=== PATIENT | female | born 1970 | race Caucasian/White ===

== ENCOUNTER → 2019-10-13 17:55 | Outpatient (CLI) | payer BC, SELFPAY ==
--- NOTE | ~2019-10-13 | XR_ITS ---
EXAMINATION: XR chest 2V DATE: 10/13/2019 18:38 INDICATION: Allergic rhinitis. Cough. TECHNIQUE: frontal and lateral views of the chest were obtained. COMPARISON: Chest radiograph dated 09/29/2013 FINDINGS: The lungs remain clear with no focal airspace opacities, pulmonary edema, pleural effusion or pneumot horax. The cardiomediastinal silhouette is normal. Mild thoracic spondylosis. IMPRESSION: 1. No acute cardiopulmonary disease. Reviewed, dictated and finalized at location A. TENANCE DEPARTMENT MANAGER
== END ==
PROVIDERS: PCP Family Medicine; Visit Provider Family Medicine
DX: J30.9 Allergic rhinitis, unspecified (principal)
CPT/HCPCS: 71046

== ENCOUNTER 2020-02-18 09:40 | Outpatient (CLI) | payer BC, SELFPAY ==
--- NOTE | ~2020-02-18 | CT_ITS ---
EXAMINATION: CT sinus wo con DATE: 02/18/2020 10:14 INDICATION: Chronic sinusitis TECHNIQUE: Computed tomography (CT) of the paranasal sinuses was performed without intravenous contra st. The dose-length product was 312.93 mGy-cm. Automated exposure control and iterative reconstructio n technique were employed. COMPARISON: None FINDINGS: Minimal mucosal thickening in the sphenoid sinus. No air-fluid levels. Ostiomeatal units ar e patent. No significant nasal septal deviation. Mastoids are pneumatized. IMPRESSION: 1. Minimal sphenoid sinus disease. Reviewed, dictated and finalized at location A.
== END 2020-02-18 09:41 | disposition home or self-care (01) ==
LOC: ANHIMG 09:51
PROVIDERS: PCP Family Medicine; Visit Provider Allergy & Immunology
DX: J32.9 Chronic sinusitis, unspecified (principal)
CPT/HCPCS: 70486

== ENCOUNTER 2020-07-24 00:21 | Outpatient (CLI) | payer BC, SELFPAY ==
[2020-07-24 21:19] LABS: SARS-CoV-2 RNA PCR Negative
== END 2020-07-24 00:22 | disposition home or self-care (01) ==
LOC: ANHCOVIDDT 00:22
PROVIDERS: PCP Family Medicine; Visit Provider Internal Medicine Gastroenterology
DX: Z01.812 Encounter for preprocedural laboratory examination (principal); Z20.828 Contact with and (suspected) exposure to other viral communicable diseases
CPT/HCPCS: 87635; C9803; U0003

== ENCOUNTER 2020-07-27 05:17 | Day surgery (SDC) | payer BC, SELFPAY ==
--- NOTE | 2020-07-26 11:58 | WPDANESEPPF ---
Anes - Initial Pre Proc Eval Procedure: Operation Date: 07/27/20 08:00 Proposed Procedures p Screening Colonoscopy - Abdi Haley MD Date/Time: 07/26/20 11:58 Surgeon: Abdi Haley MD Pre Op Diagnosis: Neoplasm Screening Patient Data Age: 50 Gender: F Height: 1.7 m Weight: 87 kg Allergies Allergy/AdvReac Type Severity Reaction Status Date / Time No Known Allergies Allergy Verified 07/27/20 06:45 Home Medications Medication Instructions Recorded Confirmed Type levonorgestrel 0.15 mg-ethinyl 1 tablet PO DAILY #84 tablet 09/12/19 07/20/20 Rx estradiol 0.03 mg tablet calcium carbonate 600 mg (1,500 1 cap PO DAILY cap 10/07/19 07/20/20 History mg)-vitamin D3 500 unit capsule levocetirizine 5 mg tablet 5 mg PO DAILY 10/07/19 07/20/20 History mometasone 50 mcg/actuation nasal 2 spray NASAL DAILY 10/07/19 07/20/20 History spray peg 3350-electrolytes 236 240 ml PO Q10M #4000 ml 06/08/20 07/20/20 Rx gram-22.74 gram-6.74 gram-5.86 gram solution omeprazole 40 mg PO BID 07/20/20 07/20/20 History Patient hx anesthesia problems: none Family hx anesthesia problems: none PMFSH Past Medical History Medical History (Updated 04/28/20 @ 08:52 by Viry Lauren) History of chicken pox Normal Pap smear (~07/04/19) HPV neg, CT/NG neg Wears contact lenses Surgical History Surgical History History of appendectomy (~12/19/17) Hx of cholecystectomy (~11/24/13) Family History Family History Father Hypertension Hyperlipidemia Pulmonary embolism DVT (deep venous thrombosis) Mother Hypertension Grandparent Breast cancer Hypertension Macular degeneration Sibling No problems noted. Sibling No problems noted. Social History Social History Smoking status: Never smoker Alcohol intake: current Drinks per week: 1 Substance use: never Substance use type: does not use Living arrangements: with family Spiritual care concerns: No Anes - Eval Final PreProcedure Day of Procedure 07/26/20 11:58 Patient weight: obese Heart: regular rate and rhythm Lungs: clear to auscultation and normal air movement Airway: Mallampati scale class II Neurological: alert and oriented Last oral intake: >/= 8 hours ASA classification: II Emergent: no Anesthetic plan: proceed Anesthesia type and monitoring: general GIVS and standard monitoring Informed Consent: The patient's anesthetic plan and its attendant risks and benefits were discussed with the patient/family/POA. Questions were solicited and answers provided to the satisfaction of the patient/family/POA.
[2020-07-27 06:47] VITALS: BP 146/84; PULSE 93; RESP 16; TEMP 36.8; O2SAT 99; BMI 30.1
[2020-07-27] MEDS: LACTATED RINGERS 1,000 ML 150 ML IV CONT (07:03)
--- NOTE | 2020-07-27 08:31 | PM.HPGS ---
History of Present Illness History of Present Illness Consent: Risks, benefits, and alternatives have been discussed and questions answered. Patient agrees to proceed with procedure. Chief complaint: Neoplasm Screening Narrative: Ivette Muñoz is a 50 year old female here for first screening colonoscopy Review of Systems Constitutional: Constitutional: Denies headache(s) and Denies weakness Eyes: Eyes: Denies blurry vision ENT: Reports Normal hearing present, Denies headache(s) and Denies neck pain Cardiovascular: Cardiovascular: Denies chest pain and Denies dyspnea Respiratory: Respiratory: Denies dyspnea Gastrointestinal: Gastrointestinal: Reports no additional gastrointestinal complaints Genitourinary: Genitourinary: Denies dysuria Musculoskeletal: Musculoskeletal: Denies neck pain Integumentary/Breasts: Skin/Breast: Denies dry skin Neurologic: Reports Normal hearing present, Denies headache(s) and Denies weakness Psychiatric: Psychiatric: Denies anxiety Endocrine: Endocrine: Denies change in body appearance Hematologic/Lymphatic: Hematologic/Lymphatic: Denies easy bleeding Allergic/Immunologic: Allergic/Immunologic: Denies urticaria PMF Past Medical History Medical History (Updated 07/27/20 @ 08:32 by Abdi Haley MD) Colon cancer screening History of chicken pox Normal Pap smear (~07/04/19) HPV neg, CT/NG neg Wears contact lenses Surgical History Surgical History History of appendectomy (~12/19/17) Hx of cholecystectomy (~11/24/13) Family History Family History Father Hypertension Hyperlipidemia Pulmonary embolism DVT (deep venous thrombosis) Mother Hypertension Grandparent Breast cancer Hypertension Macular degeneration Sibling No problems noted. Sibling No problems noted. Social History Social History Smoking status: Never smoker Alcohol intake: current Drinks per week: 1 Substance use: never Substance use type: does not use Living arrangements: with family Spiritual care concerns: No Meds Home Medications and Allergies Home Medications Medication Instructions Recorded Confirmed Type levonorgestrel 0.15 mg-ethinyl 1 tablet PO DAILY #84 tablet 09/12/19 07/20/20 Rx estradiol 0.03 mg tablet calcium carbonate 600 mg (1,500 1 cap PO DAILY cap 10/07/19 07/20/20 History mg)-vitamin D3 500 unit capsule levocetirizine 5 mg tablet 5 mg PO DAILY 10/07/19 07/20/20 History mometasone 50 mcg/actuation nasal 2 spray NASAL DAILY 10/07/19 07/20/20 History spray peg 3350-electrolytes 236 240 ml PO Q10M #4000 ml 06/08/20 07/20/20 Rx gram-22.74 gram-6.74 gram-5.86 gram solution omeprazole 40 mg PO BID 07/20/20 07/20/20 History Allergies Allergy/AdvReac Type Severity Reaction Status Date / Time No Known Allergies Allergy Verified 07/27/20 06:45 Vital Signs Vital Signs - 24 hr 07/27/20 06:47 Temperature 98.3 F Pulse Rate 93 Respiratory Rate 16 Blood Pressure 146/84 H Pulse Oximetry 99 Exam Const: General: comfortable and no acute distress HENMT: General nose exam: Normal nares present Eyes: General: appearance normal, both eyes and all related structures Neck: Neck: no JVD Resp: Auscultation: clear to auscultation bilaterally Cardio: Rate: regular rate Rhythm: regular rhythm GI: Inspection: non-distended GI Palp: Yes Soft to palpation Skin: General skin exam: normal color Neuro: General: gait normal Speech: normal speech Extrem: General: normal to inspection Psych: Mental Status: mental status grossly normal Assessment and Plan Assessment and plan (1) Colon cancer screening: Code(s): Z12.11 - Encounter for screening for malignant neoplasm of colon Status: Acute
[2020-07-27 08:34] VITALS: BP 113/79; PULSE 86; RESP 22; O2SAT 99
[2020-07-27 08:44] VITALS: BP 128/88; PULSE 74; RESP 18; O2SAT 100
[2020-07-27 08:54] VITALS: BP 144/92; PULSE 70; RESP 20; O2SAT 98
== END 2020-07-27 09:04 | disposition home or self-care (01) ==
PROVIDERS: PCP Family Medicine; Visit Provider Internal Medicine Gastroenterology
PROC: 0DJD8ZZ Inspection of Lower Intestinal Tract, Via Natural or Artificial Opening Endoscopic (ICD-10-PCS; CPT 45378; principal; 2020-07-27 08:00)
DX: Z12.11 Encounter for screening for malignant neoplasm of colon (principal); K57.30 Diverticulosis of large intestine without perforation or abscess without bleeding; K63.5 Polyp of colon; E66.9 Obesity, unspecified; Z68.30 Body mass index [BMI] 30.0-30.9, adult
CPT/HCPCS: 45380; 88305; J2704; J7120

== ENCOUNTER 2024-05-05 17:21 | Emergency (ER) | payer OTHER, SELFPAY ==
--- NOTE | ~2024-05-05 | XR_ITS ---
EXAMINATION: XR chest 2V DATE: 05/05/2024 18:53 INDICATION: Cough. COVID-19. TECHNIQUE: Frontal and lateral views of the chest were obtained. COMPARISON: Chest 2 views 10/13/19 FINDINGS: There is mild atelectasis in left lower lung zone. No pleural effusion or pneumothorax. The heart size is normal. IMPRESSION: 1. Mild atelectasis in left lower lung zone. Reviewed, dictated and finalized at location A.
[2024-05-05 17:28] VITALS: BP 149/85; PULSE 108; RESP 15; TEMP 36.8; O2SAT 98
--- NOTE | 2024-05-05 17:30 | ED.URI ---
HPI - URI/Sore Throat General Chief Complaint: Upper Respiratory Infection <Josephine Hodge PA-C - Last Filed: 05/06/24 09:25> Stated Complaint: COVID + RECENT TRIP TO [facility] <Josephine Hodge PA-C - Last Filed: 05/06/24 09:25> Time Seen by Provider: 05/05/24 17:30 <Josepihne Hodge PA-C - Last Filed: 05/06/24 09:25> Focused HPI: This is a 54 year old female that presents to the ER for cold symptoms since yesterday. Reports cough, congestion, sore throat, vomiting and diarrhea. She tested positive on a home COVID test which prompted her to be seen in the ER. GENERAL: Well-appearing, well-nourished, and in no acute distress. HEAD: Normocephalic, atraumatic. CHEST: Clear to auscultation. ?No respiratory distress. HEART: Regular rate and rhythm.? NEURO: ?Alert and oriented x3. Patient screened in triage and initial orders placed.? ?Additional care and disposition to be based upon?diagnostic testing and treatment. <Josephine Hodge PA-C - Last Filed: 05/06/24 09:25> Focused HPI: This is a 54 year old female that presents to the ER for cold symptoms since yesterday. Reports cough, congestion, sore throat, vomiting and diarrhea. She tested positive on a home COVID test which prompted her to be seen in the ER. Patient admits that she has been recently traveling internationally. GENERAL: Well-appearing, well-nourished, and in no acute distress. HEAD: Normocephalic, atraumatic. CHEST: Clear to auscultation. ?No respiratory distress. HEART: Regular rate and rhythm.? NEURO: ?Alert and oriented x3. Patient screened in triage and initial orders placed.? ?Additional care and disposition to be based upon?diagnostic testing and treatment. Agree with triage assessment. <Edson Granda MD - Last Filed: 05/06/24 01:52> Related Data Home Medications: Home Medications Medication Instructions Recorded Confirmed calcium carbonate 600 mg-vitamin 1 cap PO DAILY 10/07/19 01/03/24 D3 12.5 mcg (500 unit) capsule (Calcium 600 with Vitamin D3) levocetirizine 5 mg tablet (Xyzal) 5 mg PO DAILY 10/07/19 01/03/24 epinephrine 0.3 mg/0.3 mL 0.3 ml IM 05/15/23 01/03/24 injection, auto-injector metformin 1,000 mg tablet mg PO 01/03/24 01/03/24 progesterone micronized 100 mg mg PO 01/03/24 01/03/24 capsule <Josephine Hodge PA-C - Last Filed: 05/06/24 09:25> Allergies/Adverse Reactions: Allergies Allergy/AdvReac Type Severity Reaction Status Date / Time No Known Allergies Allergy Verified 05/05/24 23:33 <ANUM Miguel Last Filed: 05/06/24 09:25> Review of Systems Review of Systems: All systems reviewed & are unremarkable except as noted in HPI and below <ANUM Miguel Last Filed: 05/06/24 09:25> PMFSH Past Medical History Medical History: Medical History Abnormal mammogram 8.19.21 successful core biopsy left breast/ path pending Colon cancer screening History of chicken pox Normal Pap smear (~07/04/19) HPV neg, CT/NG neg Wears contact lenses <ANUM Miguel Last Filed: 05/06/24 09:25> Surgical History Surgical History: Surgical History History of appendectomy (~12/19/17) History of colonoscopy with polypectomy 11.17.20 Hx of cholecystectomy (~11/24/13) <ANUM Miguel Last Filed: 05/06/24 09:25> Family History Family History: Family History Father Hypertension Hyperlipidemia Pulmonary embolism DVT (deep venous thrombosis) Mother Hypertension Grandparent Breast cancer Hypertension Macular degeneration Sibling No problems noted. Sibling No problems noted. <Josephine Hodge PA-C - Last Filed: 05/06/24 09:25> Social History Social History: Social History Smoking stat
[2024-05-05 18:06] LABS: Basophils Percent Auto 0.2 % (0.2-1.2); Eosinophils Absolute Auto 0.1 K/mm3 (0-0.3); Eosinophils Percent Auto 0.5 % (0-4.4); Hematocrit 46.4 % (37.0-47.0); Hemoglobin 15.8 g/dL (12.0-15.0); Immature Granulocyte Absolute 0.03 K/mm3 (0.00-0.031); Immature Granulocyte Percent A 0.3 % (0-0.5); Lymphocytes Absolute Auto 0.46 K/mm3 (0.9-3.2); Lymphocytes Percent Auto 4.9 % (18.3-44.2); Mean Corpuscular HGB Conc 34.1 g/dl (32-36); Mean Corpuscular Hemoglobin 30.5 pg (26-34); Mean Corpuscular Volume 89.6 fl (80-100); Mean Platelet Volume 9.3 fl (7.4-10.4); Monocytes Absolute Auto 0.6 K/mm3 (0.1-0.6); Monocytes Percent Auto 5.9 % (2.6-8.5); Neutrophils Absolute Auto 8.3 K/mm3 (1.3-6.7); Neutrophils Percent Auto 88.2 % (45.5-73.1); Platelet Count Result 360 k/mm3 (150-375); Red Blood Count 5.18 M/mm3 (4.2-5.4); Red Cell Distribution Width 13.1 % (11.5-14.5); White Blood Count 9.4 K/mm3 (4.5-10.0)
[2024-05-05 18:18] LABS: Alanine Aminotransferase 28 U/L (6-35); Albumin Level 4.7 g/dL (3.5-5.1); Alkaline Phosphatase 82 U/L (38-126); Anion Gap 14 mmol/L (4-12); Aspartate Amino Transferase 32 U/L (14-36); Bilirubin,Total 0.5 mg/dL (0.2-1.3); Blood Urea Nitrogen 15 mg/dL (7-17); Calcium 8.8 mg/dL (8.4-10.2); Carbon Dioxide 21 mmol/L (22-30); Chloride 100 mmol/L (98-107); Estimated CRCL calculation 85 ml/min; Estimated Glomerular Filt Rate > 60; Glucose 120 mg/dL (65-110); Sodium 135 mmol/L (137-145)
[2024-05-05 19:35] LABS: Influenza A QL RT-PCR Negative (Negative); Influenza B QL RT-PCR Negative (Negative); RSV RNA, RT-PCR Negative (Negative); SARS-CoV-2 RNA PCR Positive (Negative)
[2024-05-05 23:31] VITALS: BP 134/86; PULSE 98; RESP 15; O2SAT 98
[2024-05-05] MEDS: ONDANSETRON INJ 4 MG/2 ML VIAL IV PUSH (23:45)
[2024-05-05] MEDS: SODIUM CHLORIDE 0.9% IV 1,000 ML 999 ML IV CONT (23:45)
[2024-05-06 01:30] VITALS: BP 137/80; PULSE 93; RESP 16; O2SAT 94
== END 2024-05-06 02:15 | disposition home or self-care (01) ==
PROVIDERS: Physician Assistant; Emergency Provider Emergency Medicine; PCP Family Medicine
DX: U07.1 COVID-19 (principal); R11.2 Nausea with vomiting, unspecified; R19.7 Diarrhea, unspecified
CPT/HCPCS: 36415; 71046; 80053; 85025; 87637; 96361; 96374; 99284; J2405; J7030

== ENCOUNTER 2024-07-28 09:09 | Outpatient (CLI) | payer OTHER, SELFPAY ==
--- NOTE | ~2024-07-28 | XR_ITS ---
XR ankle LT min 3V Ordering provider: Imer Blandon APRN History: . M25.562 - Pain in left knee . Comparison: None. FINDINGS: BONES: No acute fracture or dislocation. Calcaneal spur. Longitudinal lucency seen in the AP view in the distal tibia is most likely summation shadow. JOINT SPACES: The ankle mortise is normal. SOFT TISSUES: Soft tissue swelling over the medial malleolus. IMPRESSION: No definite acute osseous abnormality left ankle. Longitudinal Lucency seen in the AP view is most l ikely summation shadow. Reviewed, dictated and finalized at location A. INVESTMENT/PORTFOLIO MANAGER IMPRESSION: No definite acute osseous abnormality left ankle. Longitudinal Lucency seen in the AP view is most likely summation shadow.
--- NOTE | ~2024-07-28 | XR_ITS ---
XR knee LT 3V Ordering provider: Imer Blandon APRN History: . M25.562 - Pain in left knee . Comparison: None. FINDINGS: BONES: No acute fracture or dislocation. JOINT SPACES: Normal. SOFT TISSUES: Normal. IMPRESSION: No acute osseous abnormality left knee. Reviewed, dictated and finalized at location A. NT TESTER ASSISTANT
--- NOTE | ~2024-07-28 | XR_ITS ---
XR shoulder RT min 2V Ordering provider: Imer Blandon APRN History: . M25.511 - Pain in right shoulder . Comparison: None. FINDINGS: BONES: No acute fracture or dislocation. JOINT SPACES: The acromioclavicular joint is normal. The glenohumeral joint is normal. SOFT TISSUES: Normal. IMPRESSION: No acute osseous abnormality right shoulder. Reviewed, dictated and finalized at location A. AL RESEARCHER
== END 2024-07-28 09:10 | disposition home or self-care (01) ==
PROVIDERS: PCP Family Medicine; Visit Provider Student in an Organized Health Care Education/Training Program
DX: M25.562 Pain in left knee (principal); M25.511 Pain in right shoulder
CPT/HCPCS: 73030; 73562; 73610

== ENCOUNTER 2024-10-30 08:00 | Outpatient (RCR) | payer OTHER, SELFPAY ==
--- NOTE | 2024-08-05 16:45 | OPREHPOC ---
Outpatient Therapy Plan of Care This is a Multidisciplinary Plan of Care that may contain components documented by all disciplines (PT, OT, and ST.) PT Problem 1 PT Problem #1 Knowledge Deficit PT Goal 1 Goal / Goal Update [place] with HEP Target Visit 4 PT Goal 2 Goal / Goal Update Report no pain greater than 2/10 consistently for 2 weeks Target Visit 8 PT Problem 2 PT Problem #2 Impaired Range of Motion PT Goal 1 Goal / Goal Update 1. Demonstrate 70 degrees coby cervical rotation motion to improve facet glide and indicate reduced cervical strain 2. Improve coby cervical side bending to 40 degrees to reduce upper trapezius restriction Target Visit 8 PT Goal 2 Goal / Goal Update 1. Improve R shoulder flexion ROM to 170 degrees to improve active reach Target Visit 8 PT Problem 3 PT Problem #3 Impaired Strength PT Goal 1 Goal / Goal Update 1. Improve right shoulder external rotation strength to 4+/5 to improve stability of joint capsule 2. Improve right shoulder flexion strength to 4+/5 to improve object lifting Target Visit 8
--- NOTE | 2024-08-05 16:45 | PTOPEVAL1 ---
Assessment and note entered by Walker Rodriguez, PT Evaluation Information Assessment Status Evaluation ICD-10 Condition Codes (PT) M25.511 Onset 07/24/24 Subjective Information Reports that she had a fall 2 weeks ago and hit her shoulder against the wall. She is having pain all the time and fluctuates. Not sleeping well at night as she cannot sleep on her side. Her left knee was injured and is giving her a lot of trouble as well. Gets pain with reaching behind head and behind back. Occasionally get pain radiating down to her wrist on the right side. Reported Pain Level Pain Score 5: Self Report Assessment PT Clinical Summary Patient presents with signs and symptoms consistent with shoulder tendonitis and Right upper trapezius compensation. Over shoulder activity limited in strength and ROM, but below shoulder activity is maintained. Patient will benefit form skilled therapy to address cervical mobility deficits, shoulder capsule limitation and shoulder girdle weakness. Plan of Care Interventions Electrical Stimulation,Hot Pack/Cold Pack,Manual Therapy,Neuro Re-education,Therapeutic Activities, Therapeutic Exercise PT Services Indicated Yes Treatment Frequency and 2x/week for 8 visits Duration These treatments will address the objective and functional deficits as defined above. The patient will be advanced safely and appropriately in order for the patient to progress towards his/her prior level of function. Additional exercises will be introduced and as well as a comprehensive home exercise program upon discharge, if needed, ?to ensure carryover of functional gains achieved in the clinic. This treatment plan has been reviewed and agreement upon by the patient.
--- NOTE | 2024-08-28 16:44 | OPREHPOC ---
Outpatient Therapy Plan of Care This is a Multidisciplinary Plan of Care that may contain components documented by all disciplines (PT, OT, and ST.) PT Problem 1 PT Problem #1 Knowledge Deficit PT Goal 1 Goal / Goal Update [place] with HEP Target Visit 4 Progress Met PT Goal 2 Goal / Goal Update Report no pain greater than 2/10 consistently for 2 weeks 08/28/24: progressing Target Visit 8 PT Problem 2 PT Problem #2 Impaired Range of Motion PT Goal 1 Goal / Goal Update 1. Demonstrate 70 degrees coby cervical rotation motion to improve facet glide and indicate reduced cervical strain 2. Improve coby cervical side bending to 40 degrees to reduce upper trapezius restriction Target Visit 8 PT Goal 2 Goal / Goal Update 1. Improve R shoulder flexion ROM to 170 degrees to improve active reach 08/28/24: progressing Target Visit 8 PT Problem 3 PT Problem #3 Impaired Strength PT Goal 1 Goal / Goal Update 1. Improve right shoulder external rotation strength to 4+/5 to improve stability of joint capsule 2. Improve right shoulder flexion strength to 4+/5 to improve object lifting 08/28/24: progressing Target Visit 8
--- NOTE | 2024-08-28 16:44 | PTOPPROG ---
Assessment and note entered by Bennett Ho, PT, DPT Evaluation Information Assessment Status Progress Diagnosis R shoulder, L knee pain ICD-10 Condition Codes (PT) Pain in right shoulder M25.511 Onset 07/24/24 Subjective Information Pt states her shoulder feels a little bit better, but not a lot better. She states she uses her R arm a lot for work and its hard to not use it to let it heel. States she has shoulder pain throughout the day and is still waking up d/t pain , is unable to sleep on her R side. Reaching behind her is still limited and painful. Reports hurting her L knee as well in the same fall. Has been wearing a brace since her fall. Reports minimal pain at rest, with a certain movement will get a sharp pain that dissipates after she triggers it. Has been working in a recliner to avoid bending her knee. If she sits too long will have lots of pain when trying to straightening it. Assessment PT Clinical Summary Patient has completed 7 visits of therapy to treat her R shoulder pain with decreased ROM and strength. She is making slow progress towards her goals, progress is limited by persistent pain. Her knee was evaluated this date, she demonstrates lots of guarding with fear avoidance behaviors. There is medial joint line tenderness. Skilled therapy services are indicated to address the deficits noted above, to manage pain, and to return to prior level of function. Plan of Care Interventions Electrical Stimulation,Hot Pack/Cold Pack,Manual Therapy,Neuro Re-education,Therapeutic Activities, Therapeutic Exercise PT Services Indicated Yes Treatment Frequency and 2x/week for 8 visits Duration These treatments will address the objective and functional deficits as defined above. The patient will be advanced safely and appropriately in order for the patient to progress towards his/her prior level of function. Additional exercises will be introduced and as well as a comprehensive home exercise program upon discharge, if needed, ?to ensure carryover of functional gains achieved in the clinic. This treatment plan has been reviewed and agreement upon by the patient.
--- NOTE | 2024-09-30 16:26 | PTOPPROG ---
Assessment and note entered by Bennett Ho, PT, DPT Evaluation Information Assessment Status Progress Diagnosis R shoulder, L knee pain ICD-10 Condition Codes (PT) Pain in right shoulder M25.511 Onset 07/24/24 Subjective Information Pt states her ankle is fine. States she gets periodic pains in her knees, that she can life with, states she feels more stable on her feet. Her shoulder still bothers her everyday, almost all day long. Has troubles getting dressed. States she has pain with daily chores, it does not limit her function, just causes pain. Assessment PT Clinical Summary Patient has completed 14 visits of therapy to treat her R shoulder pain. Today she continues to demonstrate decreased ROM and strength, limited by pain. She is making slow progress towards her goals, progress is limited by persistent pain. Continuation of skilled therapy services are indicated to improve shoulder pain reports, address the deficits noted above, to manage pain, and to return to prior level of function. Plan of Care Interventions Electrical Stimulation,Hot Pack/Cold Pack,Manual Therapy,Neuro Re-education,Therapeutic Activities, Therapeutic Exercise PT Services Indicated Yes Treatment Frequency and 2x/week for 8 visits Duration These treatments will address the objective and functional deficits as defined above. The patient will be advanced safely and appropriately in order for the patient to progress towards his/her prior level of function. Additional exercises will be introduced and as well as a comprehensive home exercise program upon discharge, if needed, ?to ensure carryover of functional gains achieved in the clinic. This treatment plan has been reviewed and agreement upon by the patient.
--- NOTE | 2024-10-30 08:56 | OPREHPOC ---
Outpatient Therapy Plan of Care This is a Multidisciplinary Plan of Care that may contain components documented by all disciplines (PT, OT, and ST.) PT Problem 1 PT Problem #1 Knowledge Deficit PT Goal 1 Goal / Goal Update [place] with HEP Target Visit 4 Progress Met PT Goal 2 Goal / Goal Update Report no pain greater than 2/10 consistently for 2 weeks 08/28/24: progressing 09/30/24: not met 10/30/24: met Target Visit 8 PT Problem 2 PT Problem #2 Impaired Range of Motion PT Goal 1 Goal / Goal Update 1. Demonstrate 70 degrees coby cervical rotation motion to improve facet glide and indicate reduced cervical strain 2. Improve coby cervical side bending to 40 degrees to reduce upper trapezius restriction Target Visit 8 PT Goal 2 Goal / Goal Update 1. Improve R shoulder flexion ROM to 170 degrees to improve active reach 08/28/24: progressing 09/30/24: slight regression 10/30/24: 1. progressing to 150 Target Visit 8 PT Problem 3 PT Problem #3 Impaired Strength PT Goal 1 Goal / Goal Update 1. Improve right shoulder external rotation strength to 4+/5 to improve stability of joint capsule 2. Improve right shoulder flexion strength to 4+/5 to improve object lifting 08/28/24: progressing 09/30/24: 1-2. progressing with pain 10/30/24: 1-2. met Target Visit 8
--- NOTE | 2024-10-30 08:57 | PTOPPROG ---
Assessment and note entered by Bennett Ho, PT, DPT Evaluation Information Assessment Status progress Diagnosis R shoulder, L knee pain ICD-10 Condition Codes (PT) Pain in right shoulder M25.511 Onset 07/24/24 Subjective Information Pt states her shoulder has made a significant improvement in the last month. She states her ROM and strength has improved significantly, she still has pain but is it limited. Can also sleep on her shoulder now. Assessment PT Clinical Summary Patient has completed 23 visits of therapy to treat her R shoulder pain. Today she demonstrates improved shoulder ROM, strength, and pain reports. She has met or progressed well towards all her therapy goals. Pt plans to continue her HEP IND and will follow up in a month if she has additional questions or needs progressed exercises . Plan of Care Interventions Electrical Stimulation,Hot Pack/Cold Pack,Manual Therapy,Neuro Re-education,Therapeutic Activities, Therapeutic Exercise PT Services Indicated Yes Treatment Frequency and follow up in a month if needed Duration These treatments will address the objective and functional deficits as defined above. The patient will be advanced safely and appropriately in order for the patient to progress towards his/her prior level of function. Additional exercises will be introduced and as well as a comprehensive home exercise program upon discharge, if needed, ?to ensure carryover of functional gains achieved in the clinic. This treatment plan has been reviewed and agreement upon by the patient.
--- NOTE | 2024-11-04 10:20 | PCPTNOTE ---
This treatment is being continued on visit number [id number]. Please see documentation on both accounts to view progress. Completed interventions, outcomes, and problems have been marked as Inactive to facilitate the copying of the Care plan routine for recurring accounts.
== END 2024-11-03 23:59 | disposition home or self-care (01) ==
LOC: ANHGOSHPT 08:00
PROVIDERS: PCP Family Medicine; Visit Provider Student in an Organized Health Care Education/Training Program
DX: M25.511 Pain in right shoulder (principal)
CPT/HCPCS: 97014; 97110; 97140; 97161; 97164; 97530; G0283

== ENCOUNTER 2025-06-13 10:46 | Outpatient (CLI) | payer OTHER, SELFPAY ==
--- NOTE | ~2025-06-13 | MR_ITS ---
EXAMINATION: MR shoulder RT wo con DATE: 06/13/2025 12:05 INDICATION: Right shoulder pain post fall TECHNIQUE: Magnetic resonance imaging (MRI) of the affected shoulder was performed without intravenous contrast. Sequences included axial PD-weighted FS FSE, coronal oblique PD-weighted FS FSE, coronal oblique T2-weighted FS FSE, sagittal PD-weighted FS FSE, and sagittal T1-weighted SE. COMPARISON: None. FINDINGS: Coracoacromial arch: The acromion undersurface is curved in morphology (type II). The coracoacromial ligament is normal. Mild acromioclavicular osteoarthritis. Rotator cuff: Moderate supraspinatus and mild infraspinatus tendinopathy. There is a small full-thickness versus severe bursal sided tear along the superior facet footplate of the supraspinatus tendon extending 4 mm AP and 6 mm medial to lateral. The subscapularis and teres minor tendons are normal. Normal rotator c uff muscle bulk and signal. Biceps tendon, glenoid labrum and glenohumeral cartilage: Long head of the biceps tendon is normal. Glenoid labrum is normal. Glenohumeral cartilage is normal. Fluid: Small glenohumeral joint effusion with proportional extension of a small amount fluid along the long head biceps tendon sheath. No loose osteochondral bodies. Small amount of fluid in the subacromial/subdeltoid bursa which could be due to either mild bursitis or decompression of fluid from the glenohumeral joint space through the possible small full-thickness supraspinatus tendon tear. Bones: Normal marrow signal with no edema, fracture or abnormal marrow replacing process. IMPRESSION: 1. Moderate supraspinatus and mild infraspinatus tendinopathy with very small full-thickness versus deep bursal sided tear along the superior facet footplate of the supraspinatus tendon. 2. Small amount of fluid in the subacromial/subdeltoid bursa which could be due to bursitis or decompression of glenohumeral joint fluid through the possible full-thickness supraspinatus tendon tear. Reviewed, dictated and finalized at location A. IMPRESSION: 1. Moderate supraspinatus and mild infraspinatus tendinopathy with very small f ull-thickness versus deep bursal sided tear along the superior facet footplate of the supraspinatus tendon. 2. Small amount of fluid in the subacromial/subdeltoid bursa which could be due to bursitis or decompression of glenohumeral joint fluid through the possible full-thickness supraspinatus tendon tear.
--- OUTSIDE RECORDS SUMMARY | 2025-06-13 10:50 | XMS_ITS | Clinical Summary ---
Author Organization [facility] Address [address] [place] [address] Care Team Providers Care Family Educator Name Role Phone Janet Sapp MD Primary Care Provider [phone] Source Comments [facility],non-owned Affiliates and Associated Physician Practices is amultiple site organization consisting of ambulatory clinics and hospital sitesin [place], [place], [place] and [place]. This disclosure is being madepursuant to the Care Everywhere program and may not contain all information available regarding this patient. Last updated 18.[facility] Allergies No known active allergies Medications * Be aware that medications may not be up to date on this document. Alwaysverify current medications with the patient. levocetirizine (XYZAL) 5 MG tablet Take 1 (one) tablet by mouth once daily Active triamcinolone (NASACORT AQ) 55 MCG/ACT nasal inhaler Welch 1 (one) spray into each nostril once daily Active ketotifen (Zaditor) 0.025 % ophthalmic solution Instill 1 (one) drop into both eyes every 12 hours Active Syringe/Needle, Disp, (SYRINGE 3CC/25GX5/8) 25G X 5/8 3 ML MISC For use with allergy serum as directed. Dispense 30 for a 1 month supply 30 Each 3 3 Active EPINEPHrine (Epipen) 0.3 MG/0.3ML auto-injector pen Inject 0.3 mL into muscle once as needed for Anaphylaxis 0.3 mL 3 Active Immunizations Immunization Administration Dates Next Due Cristo Moreno primary monoval ent 12+ yr 0.3mL Purple cap 08/25/2021,12/24/2020,12/03/2020 iNFLUENZA VACCINE, RECOM-CARSON, QUADR. (FLUBLOCK QUADRIVALENT; 18Y+) (RIV4) 07/06/2020 Family History Medical History Relation Name Comments Asthma Brother Hypertension Father Relation Name Status Comments Brother Father Social History Tobacco Use Types Packs/Day Years Used Date Smoking Tobacco: Never Smokeless Tobacco: Never Tobacco Cessation:Counseling Given: Not Answered Alcohol Use Standard Drinks/Week Comments Yes 0 (1 standard drink = 0.6 oz pur e alcohol) AUDIT-C Answer Date Recorded Q1: How often do you have a drink containing alc ohol? Monthly or less 06/07/2020 Q2: How many drinks containi ng alcohol do you have on a typical day when you are drinking? 1 or 2 06/07/2020 Q3: How often do you have si x or more drinks on one occasion? 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 Height 170.2 cm (5' 7) 07/19/2023 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 Body Mass Index 35.08 07/19/2023 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 Plan of Treatment Health Maintenance Due Date Last Done Comments COLOGUARD (AGES 45-75) - COLON CA SCREENING 1970 COLON MONITORING 1970 COLONOSCOPY - COLON CA SCREENING 1970 CT COLONOGRAPHY - COLON CA SCREENING 1970 Colorectal Cancer Screening 1970 FIT - COLON CA SCREENING 1970 FLEX SIG - COLON CA SCREENING 1970 LIPID TESTING 1970 HIV SCREENING 1985 HEPATITIS C SCREENING 01/03/1988 DTAP/TDAP/TD VACCINES (1 - Tdap) 1989 HEPATITIS B VACCINE (1 of 3 - 19+ 3-dose series) 1989 PAP SMEAR 1991 PNEUMOCOCCAL VACCINE 50+ (1 of 1 - PCV) 01/08/2020 ZOSTER VACCINE (1 of 2) 01/08/2020 SCREENING FOR DIABETES 07/19/2023 MAMMOGRAM 06/06/2024 06/06/2022, 04/10, 04/18/2021, Additional history exists DEPRESSION SCREENING 09/10/2024 COVID-19 VACCINE ( season) 2025 08/25/2021, 12/24/2020, 12/03/2020 INFLUENZA VACCINE (#1) 2025 07/06/2020 HIB VACCINE Aged Out No longer eligi ble based on patient's age to complete this topic HPV VACCINE Aged Out No longer eligi ble based on patient's age to complete this topic MENINGOCOCCAL (Group B) VACCINE SHARED DECISION-MAKING Aged Out No longer eligible based on patient's age to complete this topic MENINGOCOCCAL GROUPS A/C/Y/W VACCINE Aged Out No longer eligible based on patient's age to complete this topic Insurance [facility] Care Teams Family Educator Relationship Specialty Start Date End Date Janet Sapp MD [address] [place] [address] PCP - General 12/20/17
--- OUTSIDE RECORDS SUMMARY | 2025-06-13 10:50 | XMS_ITS | Clinical Summary ---
Author Organization [facility] Address [address] [place] [address] Care Team Providers Care Hand Molder Name Role Phone Unavailable Primary Care Provider Unavailabl e Allergies No known active allergies Medications progesterone micronized (PROMETRIUM) 100 mg Capsule Take 300 mg by mouth daily. Active testosterone cypionate (DEPO-TESTOSTE MAITE) 100 mg/mL Oil Inject 0.2 mL by intramuscular injection one time only. Active estradioL (ESTRACE) 2 mg tablet Take 2 mg by mouth daily. Active levocetirizine (XYZAL) 5 mg tablet Take 5 mg by mouth late in the day. Active Active Problems Problem Noted Date Diagnosed Date Elevated platelet count 05/15/2025 Encounters Date Type Department Care Team Description 06/10/2025 Telephone [facility] Oncology and Hematology [facility] [address] [place] [address] Joe Gardner MD Labs Only 05/19/2025 External Device Data STL ABSTRACTION Provider, Abstract 05/19/2025 External Device Data ST[facility] ABSTRACTION Provider, Abstract 05/19/2025 External Device Data ST[facility] ABSTRACTION Provider, Abstract 05/15/2025 10:30 AM CDT Office Visit [facility] Oncology and Hematology - [place] [address] [place] [id number] Micki Infante MD Elevated platelet count (Primary Dx) from Last 3 Months Family History Medical History Relation Name Comments No Known Problems Brother No Known Problems Child Heart Disease Father Heart Disease Mother No Known Problems Sister 1 No Known Problems Sister 2 Relation Name Status Comments Brother Alive Child Alive Father Alive Mother Alive Sister 1 Alive Sister 2 Social History Tobacco Use Types Packs/Day Years Used Date Smoking Tobacco: Never Smokeless Tobacco: Never Alcohol Use Standard Drinks/Week Comments Yes 0 (1 standard drink = 0.6 oz pur e alcohol) Occasionally Comments Unknown Sex and Gender Information Value Date Recorded Sex Assigned at Not on file Legal Sex Female 3:24 PM CDT Gender Identity Not on file Sexual Orientation Not on file Last Filed Vital Signs Vital Sign Reading Time Taken Comments Blood Pressure 152/93 05/15/2025 10:31 AM CDT Pulse 83 05/15/2025 10:29 AM CDT Temperature 36.6 C (97.9 F) 05/15/2025 10:29 AM CDT Respiratory Rate 15 05/15/2025 10:2 9 AM CDT Oxygen Saturation 95% 05/15/2025 10: 29 AM CDT Inhaled Oxygen Concentration - - Weight 100.9 kg (222 lb 6.4 oz) 025 10:29 AM CDT Height 170.2 cm (5' 7) 05/15/2025 10:2 9 AM CDT Body Mass Index 34.83 05/15/2025 10:29 AM CDT Plan of Treatment Upcoming Encounters Date Type Department Care Team (Late st Contact Info) Description 06/15/2025 4:30 PM CDT Telephone Check Up [facility] Oncology and Hematology - [place] [address] [facility] [address] [place] [address] Joe Gardner MD [address] [facility] [address] [place] [address] Health Maintenance Due Date Last Done Comments Pre-Diabetes and Diabetes Screening 1970 HEPATITIS B VACCINES (1 of 3 - 19+ 3-dose series) 1989 HPV/Cotest (21-29) 1991 CERVICAL CANCER SCREENING 01/08/2000 HPV/Cotest (30-65) 01/08/2000 PAP SMEAR 01/08/2000 BREAST CANCER SCREENING 2010 COLORECTAL SCREENING 2015 Colorectal Cancer Screening 2015 FIT-DNA Q 3 years 2015 FIT/FOBT Q 1 year 2015 Flex Sig/CT Colonography Q 5 years 2015 INFLUENZA VACCINE (#1) 2025 1, 07/06/2020, 07/06/2020, Additional history exists DTAP/TDAP/TD VACCINES (3 - T d or Tdap) 10/07/2029 10/07/2019, 11/04/2009 ZOSTER VACCINE Completed 03/23/2022, 11/03/2021 Insurance [facility]
--- OUTSIDE RECORDS SUMMARY | 2025-06-13 10:50 | XMS_ITS | Clinical Summary ---
Author Organization [facility] Address [address] [place] [address] Care Team Providers Care Grill Associate Name Role Phone Janet Sapp MD Primary Care Provider + Allergies No known active allergies Medications levocetirizine (XYZAL) 5 mg tablet Take 5 mg by mouth every evening Active calcium carb/vit D3/minerals (CALCIUM-VITAMI N D ORAL) Take by mouth Active Active Problems Problem Noted Date Diagnosed Date At high risk for breast cancer 02/26/2019 Surgical History Surgery Date Site/Laterality Comments CHOLECYSTECTOMY APPENDECTOMY BREAST BIOPSY 04/28/2021 Left Medical History Medical History Date Comments Headaches, cluster Family History Medical History Relation Name Comments Breast cancer Paternal Grandmother Relation Name Status Comments Paternal Grandmother Social History Tobacco Use Types Packs/Day Years Used Date Smoking Tobacco: Never Smokeless Tobacco: Never Alcohol Use Standard Drinks/Week Comments Yes 0 (1 standard drink = 0.6 oz pur e alcohol) AUDIT-C Answer Date Recorded Frequency of Alcohol Consumption Monthly or less 02/25/2019 Average Number of Drinks Not on file 019 Frequency of Binge Drinking Not on file 02/08 Comments No Sex and Gender Information Value Date Recorded Sex Assigned at Not on file 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 Gender Identity Not on file Sexual Orientation Not on file Obstetrics History Last Filed Vital Signs Vital Sign Reading Time Taken Comments Blood Pressure - - Pulse - - Temperature - - Respiratory Rate - - Oxygen Saturation - - Inhaled Oxygen Concentration - - Weight 88.5 kg (195 lb) 02/25/2019 2:16 PM CDT Height 170.2 cm (5' 7) 02/25/2019 2:16 PM CDT Body Mass Index 30.54 02/25/2019 2:16 PM CDT Plan of Treatment Health Maintenance Due Date Last Done Comments Cervical Cancer Screening 1970 Colon Cancer Screening-Colonoscopy 1970 Depression Screening 1970 Hepatitis C Screening 1970 Hepatitis B Screening 01/08/1988 Regular Well Visit/Exam 18-64 01/08/1988 Zoster Vaccine (1 of 2) 01/08/2020 Influenza Vaccine (#1) 2025 07/06/2020, 2018 Breast Cancer Screening-Mammogram 11/28/2025 11/28/2024, 08/23/2023, 06/06/2022, Additional history exists DTaP/Tdap/Td Vaccine (2 - Td or Tdap) 10/07/2029 10/07/2019 Pneumococcal vaccine <65 Aged Out No longer eligible based on patient's age to complete this topic Procedures Procedure Name Priority Date/Time Associated Diagnosis Comments DIAGNOSTIC MAMMOGRAM BILATERAL W CARMENCITA Schedule Routine, Read Routine (OP Routine) 11/28/2024 8:36 AM CDT Other abnormal and inconclusive findings on diagnostic imaging of breast from Last 3 Months or Most Recently Relevant to Health Maintenance Results * Diagnostic Mammogram Bilateral W Carmencita (11/28/2024 8:36 AM CDT) Anatomical Region Laterality Modality Breast Bilateral Mammography 11/28/2024 9:20 AM CDT Impressions 11/28/2024 9:28 AM CDT 1. No significant interval change in the probably benign RIGHT breast mass at 7:00 6 cm from the nipple, likely a complicated cyst. 2. No evidence of malignancy in the LEFT breast. OVERALL FINAL ASSESSMENT: BI-RADS Category 3: Probably Benign. RECOMMENDATION: Recommend follow-up diagnostic breast imaging in 12 months with bilateral diagnostic mammogram and RIGHT breast ultrasound. Dr. Elmore discussed the above findings and recommendations with the patient, who expressed her understanding of the management plan. Dictated by: Freddy Elmore MD The radiology attending physician has personally reviewed this study, and had reviewed and/or edited this written report and agrees with it. Electronically signed by: Laurence Alarcon M.D. Narrative 11/28/2024 9:28 AM CDT EXAMINATION: BILATERAL DIGITAL DIAGNOSTIC MAMMOGRAM INCLUDING CAD AND BILATERAL DIGITAL BREAST TOMOSYNTHESIS; RIGHT BREAST SONOGRAM HISTORY: 54-year-old woman presents for 2nd six-month follow-up of a probably benign RIGHT breast mass, likely a complicated cyst. She is also due for her screening mammogram. COMPARISON: Multiple priors, most recently diagnostic breast imaging 04/04/2024 TECHNIQUE: Full field digital mammographic views of BOTH breasts were performed, including computer aided detection (CAD) and BILATERAL digital breast tomosynthesis (DBT). Directed ultrasound evaluation of the RIGHT breast was performed. BREAST PARENCHYMAL COMPOSITION: The breasts are heterogeneously dense, which may obscure small masses. MAMMOGRAM FINDINGS: There is no new suspicious abnormality in either breast. Stable asymmetry in the posterior central RIGHT breast on mediolateral oblique view. SONOGRAM FINDINGS: Targeted ultrasound was performed of the right breast at 7:00, six cm from the nipple. No significant interval change in the 0.4 x 0.2 x 0.4 cm circumscribed oval, nearly anechoic mass with no internal flow or significant posterior features, previously 0.3 x 0.3 x 0.4 cm when measured similarly. Procedure Note Laurence Alarcon MD - 11/28/2024 EXAMINATION: BILATERAL DIGITAL DIAGNOSTIC MAMMOGRAM INCLUDING CAD AND BILATERAL DIGITAL BREAST TOMOSYNTHESIS; RIGHT BREAST SONOGRAM HISTORY: 54-year-old woman presents for 2nd six-month follow-up of a probably benign RIGHT breast mass, likely a complicated cyst. She is also due for her screening mammogram. COMPARISON: Multiple priors, most recently diagnostic breast imaging 04/04/2024 TECHNIQUE: Full field digital mammographic views of BOTH breasts were performed, including computer aided detection (CAD) and BILATERAL digital breast tomosynthesis (DBT). Directed ultrasound evaluation of the RIGHT breast was performed. BREAST PARENCHYMAL COMPOSITION: The breasts are heterogeneously dense, which may obscure small masses. MAMMOGRAM FINDINGS: There is no new suspicious abnormality in either breast. Stable asymmetry in the posterior central RIGHT breast on mediolateral oblique view. SONOGRAM FINDINGS: Targeted ultrasound was performed of the right breast at 7:00, six cm from the nipple. No significant interval change in the 0.4 x 0.2 x 0.4 cm circumscribed oval, nearly anechoic mass with no internal flow or significant posterior features, previously 0.3 x 0.3 x 0.4 cm when measured similarly. IMPRESSION: 1. No significant interval change in the probably benign RIGHT breast mass at 7:00 6 cm from the nipple, likely a complicated cyst. 2. No evidence of malignancy in the LEFT breast. OVERALL FINAL ASSESSMENT: BI-RADS Category 3: Probably Benign. RECOMMENDATION: Recommend follow-up diagnostic breast imaging in 12 months with bilateral diagnostic mammogram and RIGHT breast ultrasound. Dr. Elmore discussed the above findings and recommendations with the patient, who expressed her understanding of the management plan. Dictated by: Freddy Elmore MD The radiology attending physician has personally reviewed this study, and had reviewed and/or edited this written report and agrees with it. Electronically signed by: Laurence Alarcon M.D. us Provider Transcribed Order IMG MAMMO PROCEDURES Final Result from Last 3 Months or Most Recently Relevant to Health Maintenance Insurance [facility] BLUE [place] [address] [address] [place] [address] Care Teams Grill Associate Relationship Specialty Start Date End Date Janet Sapp MD PCP - General Family Medicine 01/28/19
== END 2025-06-13 10:47 | disposition home or self-care (01) ==
LOC: CHSIMG 10:48
PROVIDERS: PCP Family Medicine; Visit Provider Student in an Organized Health Care Education/Training Program
DX: M25.511 Pain in right shoulder (principal); M67.813 Other specified disorders of tendon, right shoulder; S46.811A Strain of other muscles, fascia and tendons at shoulder and upper arm level, right arm, initial encounter
CPT/HCPCS: 73221

== ENCOUNTER 2025-06-22 08:19 | Outpatient (CLI) | payer OTHER, SELFPAY ==
--- OUTSIDE RECORDS SUMMARY | 2025-06-22 08:28 | XMS_ITS | Clinical Summary ---
Author Organization [facility] [address] [facility] Address [address] [place] [address] Care Team Providers Care Social Welfare Administrator Name Role Phone Unavailable Primary Care Provider [...] Type Department Care Team Description 06/10/2025 Telephone [facility] Hemat[facility] [address] [place] [address] Joe Gardner MD Labs Only 05/19/2025 External Device Data STL ABSTRACTION Provider, Abstract 05/19/2025 External Device Data STL ABSTRACTION Provider, Abstract 05/19/2025 External Device Data STL ABSTRACTION Provider, Abstract 05/15/2025 10:30 AM CDT Office Visit [facility] Hematology - [place] [address] [place] [id number] Micki Infante MD Elevated platelet count (Primary [...] 05/15/2025 10:29 AM CDT Plan of Treatment Health Maintenance Due [...] 5 years 2015 INFLUENZA VACCINE (#1) 2025 , 07/06/2020, 07/06/2020, Additional history exists DTAP/TDAP/TD VACCINES (3 - T d or Tdap) 10/07/2029 10/07/2019, 11/04/2009 ZOSTER VACCINE Completed 03/23/2022, 11/03/2021 Insurance [facility]
--- OUTSIDE RECORDS SUMMARY | 2025-06-22 08:28 | XMS_ITS | Clinical Summary ---
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
--- OUTSIDE RECORDS SUMMARY | 2025-06-22 08:28 | XMS_ITS | Clinical Summary ---
Author Organization [facility] Address [address] [place] [address] Care Team Providers Care Church Administrator Name Role Phone Janet Sapp MD Primary Care Provider [phone] Source Comments [facility],non-owned Affiliates and Associated Physician Practices is amultiple site organization consisting of ambulatory clinics and hospital sitesin [place], [place], [place] and [place]. This disclosure is being madepursuant to the Care Everywhere program and may not contain all information available regarding this patient. Last updated 18.[facility] Allergies No known active allergies Medications * Be aware that medications may not be up to date on this document. Alwaysverify current medications with the patient. levocetirizine (XYZAL) 5 MG tablet Take 1 (one) tablet by mouth once daily Active triamcinolone (NASACORT AQ) 55 MCG/ACT nasal inhaler Angelica 1 (one) spray into each nostril once [...] Comments Blood Pressure 138/93 07/19/2023 7:45 AM HEALTH IT SPECIALIST Pulse 72 07/19/2023 7:45 AM HEALTH IT SPECIALIST Temperature 36.6 C (97.8 F) 01/06/2021 8:29 AM CDT Respiratory Rate - - Oxygen Saturation - - Inhaled Oxygen Concentration - - Weight 101.6 kg (224 lb) 07/19/2023 7:45 AM HEALTH IT SPECIALIST Height 170.2 cm (5' 7) 07/19/2023 7:45 AM HEALTH IT SPECIALIST Body Mass Index 35.08 07/19/2023 7:45 AM HEALTH IT SPECIALIST Plan of Treatment Health Maintenance Due Date [...] patient's age to complete this topic Insurance [facility] Care Teams Church Administrator Relationship Specialty Start Date End Date Janet Sapp MD [address] [place] [address] PCP - General 12/20/17
[2025-06-22 08:34] LABS: Hematocrit 44.8 % (37.0-47.0); Hemoglobin 15.0 g/dL (12.0-15.0); Immature Granulocyte Percent A 0.6 % (0-0.5); Lymphocytes Absolute Auto 1.67 K/mm3 (0.9-3.2); Mean Corpuscular HGB Conc 33.5 g/dl (32-36); Mean Corpuscular Hemoglobin 29.7 pg (26-34); Mean Corpuscular Volume 88.7 fl (80-100); Nucleated Red Blood Cells Absolute Auto 0.000 K/mm3 (0.0-0.012); Nucleated Red Blood Cells Perc 0.0 % (0.0-0.2); Platelet Count Result 391 k/mm3 (150-375); Red Blood Count 5.05 M/mm3 (4.2-5.4); White Blood Count 4.9 K/mm3 (4.5-10.0)
[2025-06-22 09:21] LABS: Iron 84 ug/dL (37-170)
[2025-06-22 09:30] LABS: Percent Iron Saturation 26 % (20-50)
[2025-06-22 10:03] LABS: Ferritin 52.60 ng/mL (11.1-264)
== END 2025-06-22 08:20 | disposition home or self-care (01) ==
LOC: ANHLAB 08:19
PROVIDERS: PCP Family Medicine; Visit Provider Internal Medicine Hematology & Oncology
DX: R79.89 Other specified abnormal findings of blood chemistry (principal)
CPT/HCPCS: 36415; 82728; 83540; 83550; 85025

== ENCOUNTER 2025-07-08 15:16 | Outpatient (CLI) | payer OTHER, SELFPAY ==
--- OUTSIDE RECORDS SUMMARY | 2025-07-06 16:30 | XMS_ITS | Encounter Summary ---
Author Organization [facility] Falcon [place] Address [address] [place] [address] Care Team Providers Care Insurance Application Investigator Name Role Phone Unavailable Primary Care Provider Unavailabl e Encounter Details Date Type Department Care Team (Late st Contact Info) Description 07/06/2025 4:30 PM CDT Telephone Check Up [facility] Oncology and Hematology - [place] [address] [facility] [address] [place] [address] Joe Gardner MD [address] [facility] [address] [place] [address] Elevated platelet count (Primary Dx) Social History Tobacco Use Types Packs/Day Years Used Date Smoking Tobacco: Never Smokeless Tobacco: Never Alcohol Use Standard Drinks/Week Comments Yes 0 (1 standard drink = 0.6 oz pur e alcohol) Occasionally Comments Unknown Sex and Gender Information Value Date Recorded Sex Assigned at Not on file Legal Sex Female 3:24 PM CDT Gender Identity Not on file Sexual Orientation Not on file documented as of this encounter Progress Notes * Joe Gardner MD - 07/06/2025 5:31 PM CDT HEMATOLOGY / ONCOLOGY PROGRESS NOTE Patient Identification: Name: Ivette Andres Age: 55 y.o. Sex: female : 1970 DIAGNOSIS Reactive thrombocytosis CURRENT TREATMENT Expectant TREATMENT HISTORY SUBJECTIVE This is a phone visit with patient. She has no new complaints. Review of system Constitutional: Patient did not mention fevers, sweats, fatigue, malaise, weight loss HEENT: Patient did not mention sinus congestion, hearing or vision problems Respiratory: Patient did not mention cough, dyspnea, wheeze Cardiovascular: Patient did not mention chest pain, exertional chest pressure/discomfort, nausea, syncope, shortness of breath GI: Patient did not mention constipation, diarrhea, dsyphagia, reflux symptoms, vomiting, melena : Patient did not mention dysuria, frequency, incontinence, urgency Integumentary system: no lymphadenopathy, sweats, flushing Musculoskeletal: Patient not mention: myalgia, arthralgia Neurological: Patient did not mention blurry or disturbed vision, numbness/weakness, dizziness Skin: No lumps, bumps or rashes. Objective: Vital signs in last 24 hours: As per nursing note Exam: This is a phone visit [facility] Labs from June 22 showed iron 84 saturation 26 ferritin 52 WBC 4.9 hemoglobin 15 platelet 391,000 @IMAGEIMP@ Assessment: Plan: Patient Active Problem List Diagnosis Date Noted Elevated platelet count 05/15/2025 Reactive thrombocytosis. Previous workup showed elevated C-reactive protein. Labs showed improvement in the platelet count. Iron studies also came back normal. She denies any previous history of thromboembolic events and the platelet count has already been improving. No need for aspirin at this time. I recommended regular activity and exercise. We will repeat labs and follow-up in 4 months. ? TOBACCO COUNSELING She is not a tobacco/nicotine user. 07/06/2025 Patient's identity confirmed yes Patient gave verbal consent to have these services billed to their insurance and expressed understanding that co-insurance and deductible may apply: yes Patient was located At home This encounter was completed via two-way synchronous audio only communication. Video technology available to provider, but patient not capable of, or doesn't consent to, use of video. Time spent in discussion with patient: 15 minutes. Joe Gardner MD documented in this encounter Plan of Treatment Upcoming Encounters Date Type Department Care Team (Late st Contact Info) Description 11/11/2025 11:45 AM CATERING SERVER Office Visit [facility] Oncology and Hematology - [place] [address] [facility] [address] [place] [address] Joe Gardner MD [address] [facility] [address] [place] [address] Scheduled Orders Name Type Priority Associated Diagnoses Orde r Schedule BASIC METABOLIC PANEL Lab Stat Elevated platelet count Expected: 10/26/2025, Expires: 07/06/2026 CBC WITH DIFFERENTIAL Lab Stat Elevated platelet count Expected: 10/26/2025, Expires: 07/06/2026 documented as of this encounter Visit Diagnoses Diagnosis Elevated platelet count- Primary Essential thrombocythemia documented in this encounter
--- NOTE | 2025-07-08 15:25 | ECG_ITS ---
Test Date: 2025-07-08 15:34:58 Measurements Intervals [place] Rate: 76 P: 55 MO: 160 QRS: 59 QRSD: 87 T: 46 QT: 363 QTc: 408 Interpretive Statements SINUS RHYTHM BASELINE ARTIFACT- II NORMAL ECG No previous ECG available for comparison Electronically Signed On 07-08-2025 15:43:51 CDT by Wolfgang Leyva D.O.
--- OUTSIDE RECORDS SUMMARY | 2025-07-08 17:21 | XMS_ITS | Clinical Summary ---
Author Organization [facility] Address [address] [place] [address] Care Team Providers Care Him Specialist Name Role Phone Janet Sapp MD Primary Care Provider [phone] Source Comments [facility],non-owned Affiliates and Associated Physician Practices is amultiple site organization consisting of ambulatory clinics and hospital sitesin [place], [place], [place] and [place]. This disclosure is being madepursuant to the Care Everywhere program and may not contain all information available regarding this patient. Last updated 18.[facility] Allergies No known active allergies Medications * Be aware that medications may not be up to date on this document. Alwaysverify current medications with the patient. levocetirizine (XYZAL) 5 MG tablet Take 1 (one) tablet by mouth once daily Active triamcinolone (NASACORT AQ) 55 MCG/ACT nasal inhaler [place] 1 (one) spray into each nostril once [...] Comments Blood Pressure 138/93 07/19/2023 7:45 AM PRE K TEACHER Pulse 72 07/19/2023 7:45 AM PRE K TEACHER Temperature 36.6 C (97.8 F) 01/06/2021 8:29 AM CDT Respiratory Rate - - Oxygen Saturation - - Inhaled Oxygen Concentration - - Weight 101.6 kg (224 lb) 07/19/2023 7:45 AM PRE K TEACHER Height 170.2 cm (5' 7) 07/19/2023 7:45 AM PRE K TEACHER Body Mass Index 35.08 07/19/2023 7:45 AM PRE K TEACHER Plan of Treatment Health Maintenance Due Date [...] patient's age to complete this topic Insurance [facility] Care Teams Him Specialist Relationship Specialty Start Date End Date Janet Sapp MD [address] [place] [address] PCP - General 12/20/17
--- OUTSIDE RECORDS SUMMARY | 2025-07-08 17:21 | XMS_ITS | Clinical Summary ---
Author Organization [facility] [address] adler Lana Address [address] [place] [address] Care Team Providers Care Slip Box Changer Name Role Phone Unavailable Primary Care Provider [...] Encounters Date Type Department Care Team Description 07/06/2025 4:30 PM CDT Telephone Check Up [facility] Oncology pending sale to [facility] Hematology [facility] Lana Wilks [address] [place] [phone] Joe Gardner MD Elevated platelet count (Primary Dx) 06/23/2025 External Device Data STL ABSTRACTION Provider, Abstract 06/22/2025 Orders Only [facility] Oncology and Hematology [facility] Lana [address]ks [address] [facility] [place] [address] Joe Gardner MD 06/10/2025 Telephone [facility] Oncology pending sale to [facility] Hematology [facility] Lana [address] [place] [address] Joe Gradner MD Labs Only 05/19/2025 External Device Data STL ABSTRACTION Provider, Abstract 05/19/2025 External Device Data STL ABSTRACTION Provider, Abstract 05/19/2025 External Device Data STL ABSTRACTION Provider, Abstract 05/15/2025 10:30 AM CDT Office Visit [facility] Oncology and Hematology - [place] [address] [place] [address] Micki Infante MD Elevated platelet count (Primary [...] st Contact Info) Description 11/11/2025 11:45 AM WEB APPLICATION DEVELOPER Office Visit [facility] Oncology and Hematology [place] [address] [place] [address] Joe Gardner MD [address] [facility] [address] [place] [address] Health Maintenance Due Date Last Done Comments Pre-Diabetes and Diabetes Screening 1970 DTAP/TDAP/TD VACCINES (1 - Tdap) 1989 HEPATITIS B VACCINES (1 of 3 - 19+ 3-dose series) 12/11 HPV/Cotest (21-29) 1991 CERVICAL CANCER SCREENING 01/08/2000 HPV/Cotest (30-65) 01/08/2000 PAP SMEAR 01/08/2000 BREAST CANCER SCREENING 2010 COLORECTAL SCREENING 2015 Colorectal Cancer Screening 2015 FIT-DNA Q 3 years 2015 FIT/FOBT Q 1 year 2015 Flex Sig/CT Colonography Q 5 years 2015 ZOSTER VACCINE (1 of 2) 01/08/2020 INFLUENZA VACCINE (#1) 2025 Procedures Procedure Name Priority Date/Time Associated Diagnosis Comments CBC WITH AUTODIFFERENTIAL Routine 2024 1:51 PM CDT from Last 3 Months Results * CBC WITH AUTODIFFERENTIAL (06/22/2025 1:51 PM CDT) Blood Joe Gardner MD HEMATOLOGY ORDERABLES Final Res ult from Last 3 Months Insurance [facility]
--- OUTSIDE RECORDS SUMMARY | 2025-07-08 17:21 | XMS_ITS | Clinical Summary ---
Author Organization [facility] Address [address] [place] [phone] Care Team Providers Care Single Pass Soil Stabilizer Operator Name Role Phone Janet Sapp MD Primary [...] on file Legal Sex Female 6:59 PM AIR CARGO GROUND OPERATIONS SUPERVISOR Gender Identity Not on file Sexual Orientation [...] Most Recently Relevant to Health Maintenance Insurance [facility] BLUE [place] [place] [address] Care Teams Single Pass Soil Stabilizer Operator Relationship Specialty Start Date End Date Janet Sapp MD PCP - General Family Medicine 01/28/19
== END 2025-07-08 15:17 | disposition home or self-care (01) ==
LOC: ANHCARD 15:20
PROVIDERS: PCP Family Medicine; Visit Provider Orthopaedic Surgery
DX: M25.811 Other specified joint disorders, right shoulder (principal); Z01.818 Encounter for other preprocedural examination
CPT/HCPCS: 93005

== ENCOUNTER 2025-08-20 03:44 | Day surgery (SDC) | payer OTHER, SELFPAY ==
[2025-07-31 09:41] VITALS: BMI 34.4
--- OUTSIDE RECORDS SUMMARY | 2025-08-20 03:47 | XMS_ITS | Encounter Summary ---
Author Organization [facility] Address [address] [place] [address] Care Team Providers Care Systems Test Analyst Name Role Phone Unavailable Primary Care Provider Unavailabl e Encounter Details Date Type Department Care Team (Late st Contact Info) Description 10/30/1998 Outpatient Historical [facility] - [address] [place] [address] Bill Millan DO NO ADDRESS ON FILE Social History Tobacco Use Types Packs/Day Years Used Date Smoking Tobacco: Never Assessed Comments Unknown Sex and Gender Information Value Date Recorded Sex Assigned at Not on file Legal Sex Female 2:45 AM REFUELING RAMP ATTENDANT Gender Identity Not on file Sexual Orientation Not on file documented as of this encounter Plan of Treatment Upcoming Encounters Date Type Department Care Team (Late st Contact Info) Description 11/11/2025 11:45 AM REFUELING RAMP ATTENDANT Office Visit [facility] Oncology and Hematology - [place] [address] [facility] [address] [place] [address] Joe Gardner MD [address] [facility] [address] [place] [address] documented as of this encounter Visit Diagnoses Not on filedocumented in this encounter
--- OUTSIDE RECORDS SUMMARY | 2025-08-20 03:47 | XMS_ITS | Clinical Summary ---
Author Organization [facility] [address] adler Robbie Address [address] [place] [address] Care Team Providers Care Bottle House Quality Control Technician Name Role Phone Unavailable Primary Care Provider [...] Encounters Date Type Department Care Team Description 07/28/2025 External Device Data STL ABSTRACTION Provider, Abstract 07/14/2025 External Device Data STL ABSTRACTION Provider, Abstract 07/14/2025 External Device Data STL ABSTRACTION Provider, Abstract 07/06/2025 4:30 PM CDT Telephone Check Up [facility] Oncology and Hematology [facility] [place] Wilks [address] [place] [address] Joe Gardner MD Elevated platelet count (Primary Dx) 06/23/2025 External Device Data STL ABSTRACTION Provider, Abstract 06/22/2025 Orders Only [facility] Oncology and Hematology [facility] [address] Wilks [address] [place] [address] Joe Gardner MD 06/10/2025 Telephone [facility] Oncology and Hematology [facility] [address] [place] [address] Joe Gardner MD Labs Only from Last 3 Months Family History Medical [...] on file Legal Sex Female 2:45 AM PROSTHETIC LAB TECHNICIAN Gender Identity Not on file Sexual Orientation [...] st Contact Info) Description 11/11/2025 11:45 AM PROSTHETIC LAB TECHNICIAN Office Visit [facility] Oncology and Hematology - [place] [address] [facility] [address] [place] [address] Joe Gardner MD [address] [facility] [address] [place] [address] Health Maintenance Due Date Last [...] WITH AUTODIFFERENTIAL (06/22/2025 1:51 PM CDT) Blood us Joe Gardner MD HEMATOLOGY ORDERABLES Final Res ult from Last 3 Months Insurance [facility]
--- OUTSIDE RECORDS SUMMARY | 2025-08-20 03:47 | XMS_ITS | Clinical Summary ---
Author Organization [facility] Address [address] [place] [address] Care Team Providers Care Media Technician Name Role Phone Janet Sapp MD Primary [...] on file Legal Sex Female 6:59 PM STONE CRUSHER OPERATOR Gender Identity Not on file Sexual [...] Most Recently Relevant to Health Maintenance Insurance [facility] BLUE [place] [address] [place] [address] Care Teams Media Technician Relationship Specialty Start Date End Date Janet Sapp MD PCP - General Family Medicine 01/28/19
--- OUTSIDE RECORDS SUMMARY | 2025-08-20 03:47 | XMS_ITS | Encounter Summary ---
Author Organization [facility] Address [address] [place] [address] Care Team Providers Care Pattern Generator Operator Name Role Phone Unavailable Primary Care Provider Unavailabl e Encounter Details Date Type Department Care Team (Late st Contact Info) Description 12/01/1998 Outpatient Historical [facility] Yumiko Fernandez MD Social History Tobacco Use Types Packs/Day Years Used Date Smoking Tobacco: Never Assessed Comments Unknown Sex and Gender Information Value Date Recorded Sex Assigned at Not on file Legal Sex Female 2:45 AM JAPANESE PROFESSOR Gender Identity Not on file Sexual Orientation Not on file documented as of this encounter Plan of Treatment Upcoming Encounters Date Type Department Care Team (Late st Contact Info) Description 11/11/2025 11:45 AM JAPANESE PROFESSOR Office Visit [facility] Oncology and Hematology - [place] [address] [facility] [address] [place] [address] Joe Gardner MD [address] [facility] [address] [place] [address] documented as of this encounter Visit Diagnoses Not on filedocumented in this encounter
--- OUTSIDE RECORDS SUMMARY | 2025-08-20 03:47 | XMS_ITS | Clinical Summary ---
Author Organization [facility] Address [address] [place] [address] Care Team Providers Care Sound Assistant Name Role Phone Janet Sapp MD Primary Care Provider [phone] Source Comments [facility],non-owned Affiliates and Associated Physician Practices is amultiple site organization consisting of ambulatory clinics and hospital sitesin [place], [place], [place] and [place]. This disclosure is being madepursuant to the Care Everywhere program and may not contain all information available regarding this patient. Last updated 18.[facility] Allergies No known active allergies Medications * Be aware that medications may not be up to date on this document. Alwaysverify current medications with the patient. levocetirizine (XYZAL) 5 MG tablet Take 1 (one) tablet by mouth once daily Active triamcinolone (NASACORT AQ) 55 MCG/ACT nasal inhaler [place] 1 (one) spray into each nostril once [...] Comments Blood Pressure 138/93 07/19/2023 7:45 AM TAG WRITER Pulse 72 07/19/2023 7:45 AM TAG WRITER Temperature 36.6 C (97.8 F) 01/06/2021 8:29 AM CDT Respiratory Rate - - Oxygen Saturation - - Inhaled Oxygen Concentration - - Weight 101.6 kg (224 lb) 07/19/2023 7:45 AM TAG WRITER Height 170.2 cm (5' 7) 07/19/2023 7:45 AM TAG WRITER Body Mass Index 35.08 07/19/2023 7:45 AM TAG WRITER Plan of Treatment Health Maintenance Due Date [...] patient's age to complete this topic Insurance [facility] Care Teams Sound Assistant Relationship Specialty Start Date End Date Janet Sapp MD [address] [place] [address] PCP - General 12/20/17
[2025-08-20 08:34] VITALS: BP 135/91; PULSE 86; RESP 18; TEMP 36.2; O2SAT 95
--- NOTE | 2025-08-20 08:46 | PM.HPGS ---
History of Present Illness History of Present Illness Consent: Risks, benefits, and alternatives have been discussed and questions answered. Patient agrees to proceed with procedure. Chief complaint: Encounter for screening for malignant neoplasm of Narrative: Ivette Andres is a 55 year old female with colon polyp in 2019 Review of Systems Review of Systems: All systems reviewed & are unremarkable except as noted in HPI and below PMFSH Past Medical History Medical History COVID-19 Colon cancer screening Wears contact lenses History of chicken pox Normal Pap smear (~07/04/19) HPV neg, CT/NG neg Surgical History Surgical History H/O left breast biopsy 2020: benign History of colonoscopy with polypectomy 07.27. Hx of cholecystectomy (~11/24/13) History of appendectomy (~12/19/17) Family History Family History Father Hypertension Hyperlipidemia Pulmonary embolism DVT (deep venous thrombosis) Mother Hypertension Grandparent Breast cancer Hypertension Macular degeneration Sibling No problems noted. Sibling No problems noted. Social History Social History Smoking status: Never smoker Alcohol intake: current Drinks per week: 1 Substance use: never Substance use type: does not use Lack of Transportation: No Lack of Food: Never True Current Housing: I Have Housing Concerned About Future Housing: No Difficulty Paying Gas/Electric Bills: No Difficulty Paying for Meds: No Currently Unemployed: No Education: Bachelor's Degree Difficulty w/ Childcare or Family Care: No Living arrangements: with family Spiritual care concerns: No Meds Home Medications and Allergies Home Medications ?Medication ?Instructions ?Recorded ?Confirmed ?Type calcium 600 mg (as 1 cap PO DAILY 10/07/19 07/31/25 History carbonate)-vitamin D3 12.5 mcg (500 unit) capsule (Calcium with Vit D3) levocetirizine 5 mg tablet (Xyzal) 5 mg PO DAILY 10/07/19 07/31/25 History progesterone micronized 100 mg 100 mg PO DAILY 01/03/24 07/31/25 History capsule progesterone micronized 200 mg 200 mg PO DAILY 07/28/24 07/31/25 History capsule estradiol 0.75 mg/0.75 gram (0.1%) 1 packet transdermal DAILY 12/30/24 07/31/25 History transdermal gel packet testosterone 10 mg/0.5 1 pump transdermal QAM 12/30/24 07/31/25 History gram/actuation transdermal gel pump Allergies Allergy/AdvReac Type Severity Reaction Status Date / Time No Known Allergies Allergy Verified 07/31/25 09:40 Vital Signs Vital Signs - 24 hr 08/20/25 08:34 Temperature 97.1 F L Pulse Rate 86 Respiratory Rate 18 Blood Pressure 135/91 H Pulse Oximetry 95 Oxygen Delivery Room Air Exam Const: General: comfortable and no acute distress HENMT: Face/Nose/Sinus: Normal nares present Eyes: General: appearance normal, both eyes and all related structures Neck: Neck: no JVD Resp: Auscultation: clear to auscultation bilaterally Cardio: Rate: regular rate Rhythm: regular rhythm GI: Inspection: non-distended GI Palp: Yes Soft to palpation Skin: General skin exam: normal color Extrem: General: normal to inspection Psych: Mental Status: mental status grossly normal Assessment and Plan Assessment and plan (1) Colon polyps: Code(s): K63.5 - Polyp of colon Status: Acute Assessment and Plan: colonoscopy
[2025-08-20] MEDS: LACTATED RINGERS 1,000 ML 150 ML IV CONT (08:55)
[2025-08-20 09:09] VITALS: BP 115/81; PULSE 87; RESP 22; O2SAT 96
[2025-08-20 09:19] VITALS: BP 112/79; PULSE 90; RESP 27; O2SAT 97
[2025-08-20 09:29] VITALS: BP 124/84; PULSE 73; RESP 21; O2SAT 97
== END 2025-08-20 09:33 | disposition home or self-care (01) ==
PROVIDERS: PCP Family Medicine; Referring Provider Family Medicine; Visit Provider Internal Medicine Gastroenterology
PROC: 0DJD8ZZ Inspection of Lower Intestinal Tract, Via Natural or Artificial Opening Endoscopic (ICD-10-PCS; CPT 45378; principal; 2025-08-20 09:00)
DX: Z12.11 Encounter for screening for malignant neoplasm of colon (principal); K64.8 Other hemorrhoids; K57.30 Diverticulosis of large intestine without perforation or abscess without bleeding; Z98.890 Other specified postprocedural states; Z90.49 Acquired absence of other specified parts of digestive tract; Z86.0100 Personal history of colon polyps, unspecified; Z80.3 Family history of malignant neoplasm of breast
CPT/HCPCS: 45378; J2704; J7120